=== PATIENT | female | born 1950 ===

== ENCOUNTER 2021-08-19 03:39 | Outpatient (CLI) | payer SELFPAY ==
[~2021-08-19] VITALS: Ht 167.6 cm; Wt 65.8 kg
[2021-08-19] MEDS ORDERED: HEPARIN SODIUM,PORCINE 5,000 UNITS/ML VIAL IV ONE (03:40)
[2021-08-19 05:29] LABS: CARBON DIOXIDE 25 mmol/L (21-32); CHLORIDE 99 mmol/L (98-107); GLUCOSE 75 mg/dL (74-106); UREA NITROGEN, BLOOD 15 mg/dL (7-18)
[2021-08-19 05:30] LABS: ALANINE AMINOTRANSFERASE 20 U/L (14-59); ALKALINE PHOSPHATASE 55 U/L (50-136); ASPARTATE AMINOTRANSFERASE 18 U/L (15-37); CREATININE 0.7 mg/dL (0.6-1.3)
== END 2021-08-19 23:59 | disposition home or self-care (01) ==
LOC: LAB 03:39
PROVIDERS: ATTEND Internal Medicine
DX: R10.9 Unspecified abdominal pain (principal)
CPT/HCPCS: 36415; 74018; J1644